=== PATIENT | male | born 1960 | race Caucasian/White ===

== ENCOUNTER 2016-05-03 | Emergency (ER) | payer SELFPAY ==
[2016-05-03 21:02] LABS: RED BLOOD COUNT 4.79 M/UL (4.20-5.50); WHITE BLOOD COUNT 7.4 K/UL (4.5-11.0)
[2016-05-03 21:27] LABS: BUN/CREATININE RATIO 14 (0-10)
== END 2016-05-04 01:00 | disposition home or self-care (01) ==
PROVIDERS: Physician Assistant
DX: J40 Bronchitis, not specified as acute or chronic (principal); J06.9 Acute upper respiratory infection, unspecified; I25.2 Old myocardial infarction; I10 Essential (primary) hypertension; E78.5 Hyperlipidemia, unspecified; Z79.84 Long term (current) use of oral hypoglycemic drugs; Z79.82 Long term (current) use of aspirin; Z79.899 Other long term (current) drug therapy
CPT/HCPCS: 36415; 71020; 80053; 81001; 82550; 82553; 83874; 83880; 84484; 85025; 87081; 87880; 93005; 94664; 96372; 99284; J1100; J1885

== ENCOUNTER → 2020-03-11 | Outpatient (CLI) | payer OTHER ==
[~2020-03-11] MED LIST: NORFLEX 100 MG100 MG PO; Voltaren Gel 1 % TOP
== END ==
LOC: RAD 14:02
DX: M25.512 Pain in left shoulder (principal); M19.012 Primary osteoarthritis, left shoulder
CPT/HCPCS: 73030

== ENCOUNTER → 2020-09-16 | Outpatient (CLI) | payer OTHER | LOC: HEART 5 07:30 | DX: R94.31 Abnormal electrocardiogram [ECG] [EKG] (principal); I25.10 Atherosclerotic heart disease of native coronary artery without angina pectoris; E11.65 Type 2 diabetes mellitus with hyperglycemia | CPT/HCPCS: 78452; A9502; J2785 ==

== ENCOUNTER → 2021-04-01 | Outpatient (CLI) | payer MEDICARE | LOC: KOH-I 10:20 | DX: M25.511 Pain in right shoulder (principal); M25.311 Other instability, right shoulder; M19.011 Primary osteoarthritis, right shoulder; M75.101 Unspecified rotator cuff tear or rupture of right shoulder, not specified as traumatic; E88.1 Lipodystrophy, not elsewhere classified | CPT/HCPCS: 73221 ==

== ENCOUNTER 2021-04-21 21:26 | Emergency (ER) | payer OTHER | END 2021-04-21 23:02 | disposition home or self-care (01) | LOC: ER1 21:26 | DX: Z48.01 Encounter for change or removal of surgical wound dressing (principal); E11.9 Type 2 diabetes mellitus without complications; I10 Essential (primary) hypertension; Z95.5 Presence of coronary angioplasty implant and graft | CPT/HCPCS: 99283 ==

== ENCOUNTER → 2021-08-22 | Outpatient (CLI) | payer OTHER | LOC: KOH-I 08-14 16:00 | DX: M51.16 Intervertebral disc disorders with radiculopathy, lumbar region (principal); M48.061 Spinal stenosis, lumbar region without neurogenic claudication | CPT/HCPCS: 72148 ==

== ENCOUNTER → 2021-11-21 | Outpatient (CLI) | payer OTHER | LOC: KOH-I 12:21 | DX: M75.121 Complete rotator cuff tear or rupture of right shoulder, not specified as traumatic (principal); M75.111 Incomplete rotator cuff tear or rupture of right shoulder, not specified as traumatic; M67.911 Unspecified disorder of synovium and tendon, right shoulder | CPT/HCPCS: 73221 ==